=== PATIENT | female | born 1960 | race Caucasian/White ===

== ENCOUNTER 2017-12-19 13:20 | Emergency (ER) | payer MEDICAID ==
[~2017-12-19] VITALS: Ht 172.7 cm; Wt 96.2 kg
[2017-12-19 13:36] VITALS: BP 173/99; Ht 172.7 cm; Wt 96.2 kg
== END 2017-12-19 15:43 | disposition home or self-care (01) ==
LOC: ED 13:20
DX: Z76.0 Encounter for issue of repeat prescription (principal); G89.29 Other chronic pain; M54.9 Dorsalgia, unspecified; M25.519 Pain in unspecified shoulder; M25.569 Pain in unspecified knee; I10 Essential (primary) hypertension; E11.9 Type 2 diabetes mellitus without complications